=== PATIENT | male | born 1960 | race Caucasian/White ===

== ENCOUNTER 2017-12-13 11:58 | Emergency (ER) | payer MEDICAID ==
[~2017-12-13] VITALS: Ht 170.2 cm; Wt 68.0 kg
[~2017-12-13 11:58] MED LIST: IBUP-1985 PO; PSEU-259 PO
[2017-12-13] MEDS ORDERED: triamcinolone acetonide 40mg/ml inj IM ONE (12:20)
[2017-12-13] MEDS ORDERED: HYDROcodone/acetaminophen 10/325mg tab PO ONE ×2 (12:20→13:15)
[2017-12-13] MEDS ORDERED: cyclobenzaprine 10mg tablet PO ONE (12:20)
[2017-12-13 12:43] LABS: ACETAMINOPHEN < 2.0 UG/ML (10-30)
[2017-12-13] MEDS ORDERED: CYCL-1 PO (13:11)
[2017-12-13] MEDS ORDERED: HYDR-569 PO (13:11)
[2017-12-13] MEDS ORDERED: NAPR-56 PO (13:11)
[2017-12-13] MEDS ORDERED: naproxen 500mg tablet PO ONE (13:30)
[2017-12-13 13:41] VITALS: BP 136/85
== END 2017-12-13 13:44 | disposition home or self-care (01) ==
LOC: ER 11:58
DX: H93.13 Tinnitus, bilateral (principal); T39.011A Poisoning by aspirin, accidental (unintentional), initial encounter; M54.16 Radiculopathy, lumbar region; G89.29 Other chronic pain; Z98.890 Other specified postprocedural states; Z79.899 Other long term (current) drug therapy; Y92.89 Other specified places as the place of occurrence of the external cause
CPT/HCPCS: 36415; 72100; 80329; 96372; 99285; J3301; 99284

== ENCOUNTER 2019-03-15 14:29 | Emergency (ER) | payer MEDICAID, OTHER ==
[~2019-03-15] VITALS: Ht 170.2 cm; Wt 68.2 kg
[~2019-03-15 14:29] MED LIST changes: +CYCL-1 PO; +HYDR-4383 PO
[2019-03-15 14:40] VITALS: BP 138/93
[2019-03-15] MEDS ORDERED: AZIT250T83 PO (16:52)
[2019-03-15] MEDS ORDERED: ROBDML PO (16:52)
[2019-03-15] MEDS ORDERED: BENZ-16 PO (16:52)
== END 2019-03-15 17:04 | disposition home or self-care (01) ==
LOC: ER 14:30
DX: R05 Cough (principal); R51 Headache; R09.89 Other specified symptoms and signs involving the circulatory and respiratory systems; G89.29 Other chronic pain; Z87.442 Personal history of urinary calculi; Z98.890 Other specified postprocedural states; Z79.899 Other long term (current) drug therapy
CPT/HCPCS: 71045; 99283

== ENCOUNTER 2022-12-01 09:11 | Emergency (ER) | payer MEDICAID, OTHER ==
[~2022-12-01] VITALS: Ht 170.2 cm; Wt 72.7 kg
[2022-12-01 09:11] VITALS: BP 141/83
[2022-12-01] MEDS ORDERED: IBUP-1986 PO (10:20)
[2022-12-01] MEDS ORDERED: ketorolac trometh. 30mg/ml inj. IM ONE (10:25)
== END 2022-12-01 10:54 | disposition home or self-care (01) ==
LOC: ER 09:11
DX: M25.512 Pain in left shoulder (principal); G89.29 Other chronic pain; Z87.442 Personal history of urinary calculi; Z98.890 Other specified postprocedural states; Z79.899 Other long term (current) drug therapy
CPT/HCPCS: 73030; 99283